=== PATIENT | male | born 2000 | race Caucasian/White ===

== ENCOUNTER 2020-10-02 13:25 | Emergency (ER) | payer OTHER ==
[2020-10-02] MEDS ORDERED: Morphine 10 MG/ML VIAL ONE (13:43)
[2020-10-02 15:00] LABS: Hemoglobin 15.8 g/dL (14.0-18.0); Mean Corpuscular HGB CONC 34.1 g/dL (32.0-36.0); Mean Corpuscular Hemoglobin 29.6 pg (27.0-31.0); Mean Corpuscular Volume 86.8 fL (78.0-98.0); Mean Platelet Volume 9.7 fL (7.4-10.4); Platelet Count 176 thou/uL (130-400); RBC Distribution Width 11.1 % (11.5-14.5); Red Blood Cell (RBC) Count 5.33 mill/uL (4.70-6.10); White Blood Cell (WBC) Count 7.2 thou/uL (4.8-10.8)
[2020-10-02 15:02] LABS: ALT (SGPT) 14 U/L (8-55); AST (SGOT) 25 U/L (5-34); Albumin 4.3 g/dL (3.5-5.0); Alkaline Phosphatase 59 U/L (40-110); Anion Gap 16 mmol/L (10-20); BUN (Urea Nitrogen) 5 mg/dL (8.9-20.6); Bilirubin, Total 0.6 mg/dL (0.2-1.2); CK (CPK) 498 U/L (30-200); Calc. Creatinine Clearance 0 mL/min (70-130); Carbon Dioxide 22 mmol/L (22-29); Chloride 103 mmol/L (98-107); Globulin 2.7 g/dL (2.4-3.5); Glucose 83 mg/dL (70-105); Sodium 138 mmol/L (136-145)
[2020-10-02 15:09] LABS: Potassium 2.9 mmol/L (3.5-5.1)
[2020-10-02] MEDS ORDERED: Potassium Chloride 20 MEQ TAB ONE (15:13)
[2020-10-02 15:48] LABS: Band 16 % (5-11); Lymphocytes 7 % (21-51); MDiff Complete? YES; Monocytes 7 % (0-10); Neutrophil 62 % (42-75); Reflex for Review?? YES
== END 2020-10-02 15:30 | disposition home or self-care (01) ==
LOC: BURERS 13:25
DX: S29.012A Strain of muscle and tendon of back wall of thorax, initial encounter (principal); E86.0 Dehydration; E87.6 Hypokalemia; F17.210 Nicotine dependence, cigarettes, uncomplicated; X50.0XXA Overexertion from strenuous movement or load, initial encounter
CPT/HCPCS: 36415; 80053; 82550; 85025; 85060; 93005; 96372; J2270